=== PATIENT | male | born 1945 | race Caucasian/White ===

== ENCOUNTER 2018-12-04 01:07 | Emergency (ER) | payer MEDICARE, OTHER ==
[~2018-12-04] VITALS: Ht 172.7 cm; Wt 59.0 kg
[~2018-12-04 01:07] MED LIST: NKM
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
--- NOTE | 2018-12-04 01:16 | NUR ---
ED Nurse Note: skin intact, cms intact BUE/BLE, no bleeding, caprefill <3sec noted. will cont monitor.
[2018-12-04 01:18] VITALS: BP 144/90
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
[2018-12-04 06:33] VITALS: BP 138/73
--- NOTE | 2018-12-04 06:33 | NUR ---
ED Nurse Note: pt cleared to be d/c per ermd, pt discharge and aftercare instruction provided, pt refused to take paperwork, no prescription was prescribed, pt advised to follow up with pcp or return to ed if changes in condition, pt provided w/ taxi, pt left w/ all belongings.
== END 2018-12-04 06:33 | disposition home or self-care (01) ==
LOC: EDBD 01:07 → EMR 02:45
DX: R22.31 Localized swelling, mass and lump, right upper limb (principal); V43.62XA Car passenger injured in collision with other type car in traffic accident, initial encounter; Y92.410 Unspecified street and highway as the place of occurrence of the external cause
CPT/HCPCS: 99282